=== PATIENT | male | born 1990 | race Caucasian/White ===

== ENCOUNTER 2024-06-20 16:23 | Emergency (ER) | payer SELFPAY ==
--- NOTE | 2024-06-20 16:30 | ED.GENMED ---
ED Provider Triage
<Liz Pulido, POACHER WRINGER OPERATOR - Last Filed: 06/20/24 16:34>
-
Patient seen by provider in Triage?: Seen in Triage
Attestation: A medical screening examination has been initiated by a qualified medical provider. Based on the assessment performed at this time, it has been determined that an emergent medical condition may exist and the patient has been informed
that further medical evaluation and possible additional diagnostic testing may be needed.
HPI: 33 yo male with migraines, HTN, was on BP but lost health insurance so has taken non since 2 months ago. For the last 3 to 4 days he has been having some issues with chest pain and trouble breathing 'Like I can't catch my breath,' he has been
chalking it up to anxiety, patient has a history of anxiety/panic attacks but this does not feel like that). Now chest feels tight. Denies n/v/d/c.
GENERAL: Alert , in no apparent distress
EYE: No visual abnormalities.
NECK: Trachea midline
ENT: No visible abnormalities.
LUNGS: No acute respiratory distress
NEUROLOGICAL: Alert and oriented
SKIN: Skin intact. No visible changes.
MUSCULOSKELETAL: Moving extremities normally
PSYCH: Normal and appropriate interaction.
This is a medical evaluation conducted in person to initiate diagnostic evaluation and provide initial therapeutics. Please see further documentation by the treating clinician.
History of Present Illness
<Liz Pulido, POACHER WRINGER OPERATOR - Last Filed: 06/20/24 16:34>
General
Chief Complaint: Chest Pain
Time Seen by Provider: 06/20/24 17:22
<Narendra Tate DO - Last Filed: 06/20/24 23:43>
General
Source: patient
Exam Limitations: none
Nursing documentation reviewed up to this point in time: agreed with
History of Present Illness
History of Present Illness:
43-year-old male with chest pain and difficulty catching breath for the past few days. He has not taken his medications for 2 months, to include sertraline. This is because he lost his insurance. He feels very anxious.
Past History
<Liz Pulido POACHER WRINGER OPERATOR - Last Filed: 06/20/24 16:34>
Past History
ED Past Medical History: None and Other (Anxiety, binge drinker, migraine headaches, opiate addiction)
ED Past Surgical History: None
Social History
Tobacco: Smoker
Alcohol: Binge drinker
Drug: None
Personal: Single
Employment: Student
Family History
Family History: Other (Diabetes, pancreatic cancer)
Review of Systems
<Narendra Tate, DO - Last Filed: 06/20/24 23:43>
Review of Systems
Allergies reviewed?: Yes
All Other Systems: Not applicable
Constitutional: Reports no symptoms
EENT: Reports no symptoms
Respiratory: Reports trouble breathing
Cardiac: Reports chest pain
ABD/GI: Reports no symptoms
: Reports no symptoms
Musculoskeletal: Reports no symptoms
Skin: Reports no symptoms
Neurological: Reports no symptoms
Endocrine: Reports no symptoms
Hematologic/Lymphatic: Reports no symptoms
Psychiatric: Reports no symptoms
Phy Exam
<Narendra Tate, DO - Last Filed: 06/20/24 23:43>
Physical Exam
Physical Exam:
Physical Exam
General: no apparent distress, not acutely ill
Neck: supple. no meningeal signs. normal posterior pharynx
Heart: s1/s2 regular rate and rhythm, no murmur. equal radial
pulses.
HEENT: Pupils equal round reactive to light, EOMI
Lungs: no acute respiratory distress. clear bilaterally
Abdomen: normal bowel sounds. not tender. no CVAT
Neuro: alert and oriented. no focal neurological deficits cranial nerves II through XII intact
Skin: no rash
Psychiatric: well kept. interactive and cooperative
Extremities: no edema. no calf tenderness. negative homans. good distal pulses
Scores
<Narendra Tate, DO - Last Filed: 06/20/24 23:43>
Heart Score for Chest Pain Patients
STEMI patient?: No
History: Slightly or Non-Suspicious
ECG: Normal
Age: </= 45 years
Risk Factors: No Risk Factors
Troponin: </= Normal Limit
Heart Score for Chest Pain Patients: 0
Heart Score Risk: 2.5% MACE over next 6 weeks
Course
<Liz Pulido POACHER WRINGER OPERATOR - Last Filed: 06/20/24 16:34>
Orders/Labs/Results
Orders:
Orders
06/20/24 16:24
EKG [Electrocardiogram (*1)] Urgent
Reason for Study: Chest Pain
EKG- Treatment ONCE
06/20/24 16:33
CR Chest - 2 Views Urgent
Comment:
Reason For Exam: SOB, CP
06/20/24 16:40
Complete Blood Count/With Diff Urgent
Comprehensive Metabolic Panel Urgent
Troponin I Urgent
06/20/24 19:23
D-Dimer Urgent
06/20/24 20:44
Pantoprazole [Protonix IV] 40 mg IV NOW STA
Abnormal Lab Results
06/20/24
16:40
RBC 4.69 L 10^6/uL
(4.70-6.10)
MCH 33.5 H pg
(27.0-31.0)
Sodium 134 L mmol/L
(135-145)
Chloride 97 L mmol/L
(98-107)
Creatinine 0.6 L mg/dL
(0.7-1.3)
06/20/24 16:40
06/20/24 16:40
Vital Signs
Initial and Last Documented VS:
Initial Vital Signs
Temp Pulse Resp BP Pulse Ox
99 F 91 19 145/105 97
06/20/24 16:32 06/20/24 16:32 06/20/24 16:32 06/20/24 16:32 06/20/24 16:32
Last Documented Vital Signs
Temp Pulse Resp BP Pulse Ox
99 F 74 18 144/79 99
06/20/24 16:32 06/20/24 20:59 06/20/24 20:59 06/20/24 20:59 06/20/24 20:59
<Narendra Tate, DO - Last Filed: 06/20/24 23:43>
Orders/Labs/Results
Orders:
Orders
06/20/24 16:24
EKG [Electrocardiogram (*1)] Urgent
Reason for Study: Chest Pain
EKG- Treatment ONCE
06/20/24 16:33
CR Chest - 2 Views Urgent
Comment:
Reason For Exam: SOB, CP
06/20/24 16:40
Complete Blood Count/With Diff Urgent
Comprehensive Metabolic Panel Urgent
Troponin I Urgent
06/20/24 19:23
D-Dimer Urgent
06/20/24 20:44
Pantoprazole [Protonix IV] 40 mg IV NOW STA
Abnormal Lab Results
06/20/24
16:40
RBC 4.69 L 10^6/uL
(4.70-6.10)
MCH 33.5 H pg
(27.0-31.0)
Sodium 134 L mmol/L
(135-145)
Chloride 97 L mmol/L
(98-107)
Creatinine 0.6 L mg/dL
(0.7-1.3)
06/20/24 16:40
06/20/24 16:40
Vital Signs
Initial and Last Documented VS:
Initial Vital Signs
Temp Pulse Resp BP Pulse Ox
99 F 91 19 145/105 97
06/20/24 16:32 06/20/24 16:32 06/20/24 16:32 06/20/24 16:32 06/20/24 16:32
Last Documented Vital Signs
Temp Pulse Resp BP Pulse Ox
99 F 74 18 144/79 99
06/20/24 16:32 06/20/24 20:59 06/20/24 20:59 06/20/24 20:59 06/20/24 20:59
<Narendra Tate, DO - Last Filed: 06/20/24 23:43>
MDM/Problems Addressed
Differential Diagnosis Includes:
PE, ACS
MDM/Problems Addressed:
33-year-old male with shortness of breath, chest pain. Ongoing for several months. Do not suspect ACS or PE. Stable for discharge.
<Narendra Tate, DO - Last Filed: 06/20/24 23:43>
*Radiology
Radiology exam reviewed: preliminary read by ED provider (cxr nad)
*Pulse Oximetry
Patient hypoxic: no
*EKG
Interpreted by ED Provider?: Yes
EKG Intrepretation Date: 06/20/24
EKG Intrepretation Time: 16:28
Interpretation: normal
Comparison EKG: changes noted
Heart Rate: 74
Rate: normal
Rhythm: sinus
[place]: normal axis
Interval: normal interval
QRS Pattern: normal QRS
Ischemia: no ischemia
*Critical Care Note
Total Time (30-74mins, 75-104mins- exclusive of procedures): Not Applicable
Data Reviewed
Further Testing Considered But Not Given:
CT chest and chest x-ray not indicated
<Narendra Tate, DO - Last Filed: 06/20/24 23:43>
Patient Management
Social determinants of health affecting care: Living situation and Substance abuse (Tobacco)
Escalation/DeEscalation of care consider admission/obs:
Admit not indicated
ED Attending Note
<Liz Pulido POACHER WRINGER OPERATOR - Last Filed: 06/20/24 16:34>
-
Portions of this chart may have been created with voice recognition software.� Occasional wrong word or��sound alike� substitutions may have occurred due to the inherent limitations of voice recognition software.
Discharge Plan
Departure
Patient Disposition: Home (Routine Discharge)
Date of Disposition: 06/20/24
Time of Disposition: 20:44
Patient with high blood pressure during this ER visit?: Yes
Condition: Good
Discharge Problem:
Chest pain, Shortness of breath
Instructions: Chest Pain PCP Follow Up, BLOOD PRESSURE
Prescriptions:
No Action
sertraline 100 MG tablet
150 mg PO DAILY
ranitidine HCl [Zantac Maximum Strength] 150 MG tablet
150 mg PO DAILY Qty: 5 0RF
buprenorphine-naloxone 1 TAB tablet, sublingual
1 tab sublingual DAILY
Referrals:
[facility] - Call in 1-3 days for appt
NONE,* [Family Provider] -
Activity Restrictions/Additional Instructions:
return for any concerns.
Interventions
Interventions:
*Risk Screen - Suicide Last Done: 06/20/24 16:32
*General Assessment Last Done: 06/20/24 16:32
*Neglect/Abuse Screening Last Done: 06/20/24 16:32
ED- Fall Risk Assessment Last Done: 06/20/24 19:24
*ED COVID-19 Vaccine History Last Done: 06/20/24 17:36
*Nursing Disposition Last Done: 06/20/24 20:59
ED- Cardiac Assessment Last Done: 06/20/24 17:36
Discharge Date and Time
Discharge Date/Time: 06/20/24 21:00
Print Language: MONEGASQUE
[2024-06-20 16:32] VITALS: BP 145/105
[2024-06-20 16:53] LABS: % Basophils 0.3 % (0-2); % Eosinophils 0.7 % (0-6); % Immature Granulocytes 0.3 % (0-0.5); % Monocytes 8.6 % (1.7-9.3); % Neutrophils 60.1 % (42.2-75.2); Absolute Eosinophils 0.1 10^3/uL (0-0.7); Absolute Monocytes 0.6 10^3/uL (0.1-0.6); Absolute Neutrophils 4.1 10^3/uL (1.4-6.5); Hematocrit 43.8 % (39.0-52.0); Hemoglobin 15.7 g/dL (13.0-18.0); Mean Corp Hgb Conc. 35.8 g/dL (33.0-37.0); Mean Corpuscular Hgb 33.5 pg (27.0-31.0); Mean Corpuscular Volume 93.4 fL (80.0-94.0); Mean Platelet Volume 9.8 fL (7.4-10.4); Nucleated Red Blood Cells % 0 % (-); Platelet Count 190 10^3/uL (130-400); Red Blood Cell Count 4.69 10^6/uL (4.70-6.10); White Blood Cell Count 6.7 10^3/uL (4.8-10.8)
[2024-06-20 17:09] LABS: ALT (SGPT) 36 U/L (0-50); AST (SGOT) 53 U/L (17-59); Albumin 4.8 g/dl (3.5-5.0); Alkaline Phosphatase 85 U/L (38-126); Blood Urea Nitrogen 9 mg/dl (9-20); Carbon Dioxide 27 mmol/L (22-30); Chloride 97 mmol/L (98-107); Glucose 97 mg/dl (70-99); Sodium 134 mmol/L (135-145); Total Bilirubin 0.8 mg/dl (0.2-1.3); Total Protein 7.8 g/dl (6.3-8.2); eGFR > 60.00
[2024-06-20 17:14] LABS: Troponin I < 0.012 ng/ml
[2024-06-20 17:36] VITALS: BP 154/93
[2024-06-20 19:24] VITALS: BP 142/84
[2024-06-20 19:58] LABS: D-Dimer < 0.27 ug/mlFEU (0.00-0.50)
[2024-06-20] MEDS: PROTONIX IV 40 MG IV (20:48)
[2024-06-20 20:59] VITALS: BP 144/79
== END 2024-06-20 21:00 | disposition home or self-care (01) ==
LOC: EMR 16:23
PROVIDERS: Registered Nurse; EMERGENCY PHYSICIAN Emergency Medicine
DX: R07.1 Chest pain on breathing (principal); R06.02 Shortness of breath; I10 Essential (primary) hypertension; F41.9 Anxiety disorder, unspecified; F17.200 Nicotine dependence, unspecified, uncomplicated; Z59.71 Insufficient health insurance coverage; Z83.3 Family history of diabetes mellitus
CPT/HCPCS: 99283; 96374; 71046; 80053; 84484; 85025; 85379; 93005

== ENCOUNTER 2024-07-03 19:00 | Emergency (ER) | payer SELFPAY ==
[2024-07-03 19:07] VITALS: BP 114/74
[2024-07-03 19:31] LABS: % Basophils 0.7 % (0-2); % Eosinophils 0.7 % (0-6); % Immature Granulocytes 0.3 % (0-0.5); % Lymphocytes 17.6 % (20.5-51.1); % Monocytes 4.5 % (1.7-9.3); % Neutrophils 76.2 % (42.2-75.2); Absolute Monocytes 0.3 10^3/uL (0.1-0.6); Absolute Neutrophils 4.4 10^3/uL (1.4-6.5); Hematocrit 42.6 % (39.0-52.0); Hemoglobin 15.4 g/dL (13.0-18.0); Mean Corp Hgb Conc. 36.2 g/dL (33.0-37.0); Mean Corpuscular Hgb 33.6 pg (27.0-31.0); Mean Platelet Volume 9.2 fL (7.4-10.4); Nucleated Red Blood Cells % 0 % (-); Platelet Count 242 10^3/uL (130-400); Red Blood Cell Count 4.58 10^6/uL (4.70-6.10); Red Cell Dist. Width 11.9 % (11.5-14.5); White Blood Cell Count 5.8 10^3/uL (4.8-10.8)
--- NOTE | 2024-07-03 19:51 | ED.GENMED ---
History of Present Illness
<Marta Morton PA-C - Last Filed: 07/04/24 00:05>
General
Chief Complaint: Abdominal Symptoms
Source: patient
Exam Limitations: none
Time Seen by Provider: 07/03/24 19:38
History of Present Illness
History of Present Illness:
33yoM with a prior history of substance use on Suboxone presenting for evaluation of vomiting. Symptoms began around 4am this morning. He reports nausea, dry heaving, and vomiting about 12x throughout the day. He feels very dehydrated. His abdomen
feels sore but he denies any overt pain. He denies any fevers or diarrhea. He is unsure what is causing his symptoms. He denies any suspicious food intake, travel, or sick contacts. Patient does drink alcohol daily. 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 Last drink was yesterday evening. No previous abdominal surgeries.
Past History
<Marta Morton PA-C - Last Filed: 07/04/24 00:05>
Past History
ED Past Medical History: None and Other (Anxiety, binge drinker, migraine headaches, opiate addiction)
ED Past Surgical History: None
Social History
Tobacco: Smoker
Alcohol: Binge drinker
Drug: None
Personal: Single
Employment: Student
Family History
Family History: Other (Diabetes, pancreatic cancer)
Phy Exam
<Marta Morton PA-C - Last Filed: 07/04/24 00:05>
General Physical Exam
General Presentation: well appearing and no apparent distress
General age: appears stated age
General Skin: warm and dry
General Habitus: normal
General Mental: alert
ENT Exam
ENT Exam: normocephalic
Cardiovascular Exam
Cardiovascular Exam: regular rate/rhythm and no murmur
Pulmonary Exam
Pulmonary Exam: lungs clear, no respiratory distress, no rales, no crackles and no rhonchi
Gastrointestinal Exam
Gastrointestinal Exam: non tender, soft and non distended
Neurological Exam
Neurological Exam: alert
[place] Coma Scale
Eye Opening: Spontaneous
Verbal Response: Oriented
Motor Response: Obeys Commands
GCS Total Score: 15
Skin Exam
Skin Exam: normal color and warm/dry
Psychiatric Exam
Psychiatric Exam: normal mood/affect
Sepsis
<Marta Morton PA-C - Last Filed: 07/04/24 00:05>
Sepsis Screening
Sepsis Assessment: Sepsis Ruled Out
Sepsis Screen
Sepsis Screen: Sepsis Ruled Out
Date: 07/04/24
Time: 00:05
Course
<Marta Morton PA-C - Last Filed: 07/04/24 00:05>
Orders/Labs/Results
Orders:
Orders
07/03/24 19:23
BMP [Basic Metabolic Panel] Urgent
Complete Blood Count/With Diff Urgent
Lipase Urgent
Comment: ADDON
[id number] Urgent
Comment: ADDON
07/03/24 19:51
0.9% Sodium Chloride 1000 ml [Nss] 1,000 ml IV BOLUS
Ondansetron Injectable [Zofran] 4 mg IV NOW STA
07/03/24 19:56
Add On- LAB Urgent
Tests Added?: LFTs, lipase
07/03/24 20:25
COVID-19 Antigen Urgent
Source: Nasal Swab
Influenza A+B Rapid Molecular Urgent
MARIANO Source: Nasal Swab
Specimen Description:
07/03/24 20:31
Electrocardiogram (*1) Urgent
Reason for Study: Chest Pain
07/03/24 22:16
Chlordiazepoxide HCl [Librium] 50 mg PO ONCE ONE
Abnormal Lab Results
07/03/24
19:23
RBC 4.58 L 10^6/uL
(4.70-6.10)
MCH 33.6 H pg
(27.0-31.0)
Absolute Lymphs (auto) 1.0 L 10^3/uL
(1.2-3.4)
Neutrophils % 76.2 H %
(42.2-75.2)
Lymphocytes % 17.6 L %
(20.5-51.1)
Carbon Dioxide 20 L mmol/L
(22-30)
Creatinine 0.6 L mg/dL
(0.7-1.3)
Direct Bilirubin 0.5 H mg/dl
(0.0-0.4)
AST 63 H U/L
(17-59)
Albumin 5.1 H g/dl
(3.5-5.0)
07/03/24 19:23
07/03/24 19:23
Vital Signs
Initial and Last Documented VS:
Initial Vital Signs
Temp Pulse Resp BP Pulse Ox
98.2 F 86 20 114/74 96
07/03/24 19:07 07/03/24 19:07 07/03/24 19:07 07/03/24 19:07 07/03/24 19:07
Last Documented Vital Signs
Temp Pulse Resp BP Pulse Ox
98.2 F 87 18 130/87 100
07/03/24 19:07 07/03/24 23:13 07/03/24 23:13 07/03/24 23:13 07/03/24 23:13
<Vicky Amaya MD - Last Filed: 07/03/24 20:33>
Orders/Labs/Results
Orders:
Orders
07/03/24 19:23
BMP [Basic Metabolic Panel] Urgent
Complete Blood Count/With Diff Urgent
Lipase Urgent
Comment: ADDON
[id number]-[id number]-Uiptpdo Urgent
Comment: ADDON
07/03/24 19:51
0.9% Sodium Chloride 1000 ml [Nss] 1,000 ml IV BOLUS
Ondansetron Injectable [Zofran] 4 mg IV NOW STA
07/03/24 19:56
Add On- LAB Urgent
Tests Added?: LFTs, lipase
07/03/24 20:25
COVID-19 Antigen Urgent
Source: Nasal Swab
Influenza A+B Rapid Molecular Urgent
MARIANO Source: Nasal Swab
Specimen Description:
07/03/24 20:31
Electrocardiogram (*1) Urgent
Reason for Study: Chest Pain
07/03/24 22:16
Chlordiazepoxide HCl [Librium] 50 mg PO ONCE ONE
Abnormal Lab Results
07/03/24
19:23
RBC 4.58 L 10^6/uL
(4.70-6.10)
MCH 33.6 H pg
(27.0-31.0)
Absolute Lymphs (auto) 1.0 L 10^3/uL
(1.2-3.4)
Neutrophils % 76.2 H %
(42.2-75.2)
Lymphocytes % 17.6 L %
(20.5-51.1)
Carbon Dioxide 20 L mmol/L
(22-30)
Creatinine 0.6 L mg/dL
(0.7-1.3)
Direct Bilirubin 0.5 H mg/dl
(0.0-0.4)
AST 63 H U/L
(17-59)
Albumin 5.1 H g/dl
(3.5-5.0)
07/03/24 19:23
07/03/24 19:23
Vital Signs
Initial and Last Documented VS:
Initial Vital Signs
Temp Pulse Resp BP Pulse Ox
98.2 F 86 20 114/74 96
07/03/24 19:07 07/03/24 19:07 07/03/24 19:07 07/03/24 19:07 07/03/24 19:07
Last Documented Vital Signs
Temp Pulse Resp BP Pulse Ox
98.2 F 87 18 130/87 100
07/03/24 19:07 07/03/24 23:13 07/03/24 23:13 07/03/24 23:13 07/03/24 23:13
<Marta Morton PA-C - Last Filed: 07/04/24 00:05>
MDM/Problems Addressed
Differential Diagnosis Includes:
33yoM here with n/v since 4am this morning. No fevers or diarrhea. Patient is afebrile and hemodynamically stable. He is well-appearing in no acute distress. Abdominal exam is benign. Differential diagnosis includes but is not limited to:
Gastroenteritis, viral syndrome, gastritis, dehydration, no clinical signs of alcohol withdrawal
Initial ED plan: Check abdominal labs and COVID/flu swab. IV Zofran and fluid bolus for symptoms. Will have [facility] evaluate patient as he is interested in alcohol cessation.
<Marta Morton PA-C - Last Filed: 07/04/24 00:05>
*Critical Care Note
Total Time (30-74mins, 75-104mins- exclusive of procedures): Not Applicable
<Marta Morton PA-C - Last Filed: 07/04/24 00:05>
Update Note
Update Note:
Labs overall unremarkable including normal white count, lactate, and renal function. Patient feeling improved on reassessment and was able to tolerate p.o. intake. Patient spoke with [facility]STE[facility] and was given outpatient resources. Patient tells me
that he would like to stop drinking cold turkey. He has been heavily drinking for the past 2 months, about 10 shots of liquor per day. No prior history of alcohol withdrawal. Will prescribe Librium taper for patient. He was advised to avoid
alcohol while taking Librium due to risk of respiratory depression. Prescription also provided for Zofran. He was advised to follow-up with his PCP as well as the outpatient resources provided. Strict ED return precautions discussed. Patient in
agreement with plan and was discharged in stable condition.
ED Attending Note
<Marta Morton PA-C - Last Filed: 07/04/24 00:05>
-
Portions of this chart may have been created with voice recognition software.� Occasional wrong word or��sound alike� substitutions may have occurred due to the inherent limitations of voice recognition software.
<Vicky Amaya MD - Last Filed: 07/03/24 20:33>
ED Attending Note
Patient seen and examined by attending physician: Yes
I performed the substantive portion of visit, reviewed & personally made and approve the management plan that is documented in note by myself or ОЛЕГ.: Yes
ED Attending Note:
Patient's heart sounds regular. Lungs are clear. Patient has very mild epigastric tenderness on exam without rebound or guarding. He has no right upper quadrant tenderness. Patient states that his pain is minimal but the nausea is severe.
Patient symptoms may be related to heavy alcohol use last night or possibly gastritis. No sign of acute pancreatitis on lab work. Patient has no right upper quadrant tenderness to suggest gallbladder disease.
Discharge Plan
Departure
Patient Disposition: Home (Routine Discharge)
Date of Disposition: 07/03/24
Time of Disposition: 22:16
Patient with high blood pressure during this ER visit?: No
Discharge Problem:
Nausea and vomiting, Heavy alcohol consumption
Instructions: Nausea and Vomiting, Adult (DC), Alcohol withdrawal
Prescriptions:
New
ondansetron 4 mg tablet,disintegrating
4 mg PO Q6H PRN (Reason: nausea and vomiting) Qty: 20 0RF
chlordiazepoxide HCl 25 mg capsule
See Rx Instructions .ROUTE .COMPLEX Qty: 20 0RF
Rx Instructions:
Day 1: Take 50mg PO every 6 hours. Day 2: Take 50mg PO every 8 hours. Day 3: Take 50mg PO every 12 hours. Day 4: Take 50mg once at bedtime.
No Action
sertraline 100 MG tablet
150 mg PO DAILY
ranitidine HCl [Zantac Maximum Strength] 150 MG tablet
150 mg PO DAILY Qty: 5 0RF
buprenorphine-naloxone 1 TAB tablet, sublingual
1 tab sublingual DAILY
Referrals:
[facility]
NONE,* [Family Provider] -
Activity Restrictions/Additional Instructions:
Take Librium taper as prescribed. Do NOT drink alcohol while taking this.
Take Zofran as needed for nausea. Drink plenty of fluids and eat a bland diet (bananas, rice, applesauce, toast).
Please follow-up with your family doctor and the outpatient resources provided. Return to the ER with any new or worsening symptoms.
Interventions
Interventions:
*Risk Screen - Suicide Last Done: 07/03/24 19:07
*General Assessment Last Done: 07/03/24 20:57
*Neglect/Abuse Screening Last Done: 07/03/24 19:07
ED- Fall Risk Assessment Last Done: 07/03/24 20:57
*ED COVID-19 Vaccine History Last Done: 07/03/24 20:57
*Nursing Disposition Last Done: 07/03/24 23:25
OE-Qcyypp-Bbfeaixsli Assessment Last Done: 07/03/24 20:57
Discharge Date and Time
Discharge Date/Time: 07/03/24 23:28
Print Language: [place] LEONE[place]
[2024-07-03 20:04] LABS: Blood Urea Nitrogen 15 mg/dl (9-20); Calcium 9.7 mg/dl (8.4-10.2); Carbon Dioxide 20 mmol/L (22-30); Chloride 101 mmol/L (98-107); Glucose 95 mg/dl (70-99); Potassium 4.1 mmol/L (3.5-5.1); Sodium 135 mmol/L (135-145); eGFR > 60.00
[2024-07-03 20:17] LABS: ALT (SGPT) 45 U/L (0-50); AST (SGOT) 63 U/L (17-59); Albumin 5.1 g/dl (3.5-5.0); Alkaline Phosphatase 80 U/L (38-126); Direct Bilirubin 0.5 mg/dl (0.0-0.4); Lipase 59 U/L (23-300); Total Bilirubin 1.1 mg/dl (0.2-1.3); Total Protein 7.7 g/dl (6.3-8.2)
[2024-07-03] MEDS: ZOFRAN 4 MG IV (20:30)
[2024-07-03] MEDS: NSS 1000 IV (20:30)
[2024-07-03 20:59] LABS: COVID-19 Antigen Negative (Negative)
[2024-07-03 22:13] VITALS: BP 134/78
[2024-07-03] MEDS: LIBRIUM 50 MG PO (23:08)
[2024-07-03 23:13] VITALS: BP 130/87
== END 2024-07-03 23:28 | disposition home or self-care (01) ==
LOC: EMR 19:00
PROVIDERS: Emergency Medicine; Physician Assistant; EMERGENCY PHYSICIAN Emergency Medicine
DX: R11.2 Nausea with vomiting, unspecified (principal); F10.10 Alcohol abuse, uncomplicated; F17.200 Nicotine dependence, unspecified, uncomplicated
CPT/HCPCS: 96374; 96361; 99284; 80048; 80076; 83690; 85025; 87502; 87811

== ENCOUNTER 2024-08-01 21:49 | Emergency (ER) | payer BC, SELFPAY ==
[2024-08-01 21:51] VITALS: BP 144/96
--- NOTE | 2024-08-01 22:50 | ED.GENMED ---
History of Present Illness
General
Chief Complaint: Anxiety
Source: patient
Exam Limitations: none
Time Seen by Provider: 08/01/24 22:25
Nursing documentation reviewed up to this point in time: agreed with
History of Present Illness
History of Present Illness:
Pleasant 33-year-old male presents to the emergency department having a panic attack. He has a longstanding history of panic and has been having panic attacks for years. 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
panic attack. He states that he did take several breaks from work to try and calm himself down. He was unable to do so so he left early. Patient
Past History
Past History
ED Past Medical History: None and Other (Anxiety, binge drinker, migraine headaches, opiate addiction)
ED Past Surgical History: None
Social History
Tobacco: Smoker
Alcohol: Binge drinker
Drug: None
Personal: Single
Employment: Student
Family History
Family History: Other (Diabetes, pancreatic cancer)
Phy Exam
General Physical Exam
General Presentation: well appearing and moderate distress
General age: appears older than age
General Skin: warm and dry
General Habitus: normal
General Mental: anxious
General Hydration: appears well hydrated
ENT Exam
ENT Exam: EOMI, pharynx normal, neck supple and normocephalic
Eye Exam
Eye Exam: PERRL, cornea clear and conjunctiva normal
Cardiovascular Exam
Cardiovascular Exam: regular rate/rhythm, no edema, no murmur and normal peripheral pulses
Pulmonary Exam
Pulmonary Exam: lungs clear, no respiratory distress, no rales, no crackles, no rhonchi, no stridor, no wheezing and no cough
Gastrointestinal Exam
Gastrointestinal Exam: normal bowel sounds, non tender, soft, no organomegaly, no pulsatile mass and non distended
Neurological Exam
Neurological Exam: alert, oriented x3, no motor deficits and speech normal
Musculoskeletal Exam
Musculoskeletal Exam: full ROM and no edema
Skin Exam
Skin Exam: normal color, warm/dry, no rash and no petechia
Psychiatric Exam
Psychiatric Exam: anxious
Course
Orders/Labs/Results
Orders:
Orders
08/01/24 22:46
Crisis Consult Urgent
Reason for Consult: anxiety attack
08/01/24 22:50
Electrocardiogram (*1) Urgent
Reason for Study: QTc Monitoring
EKG- Treatment ONCE
08/01/24 23:57
Clonazepam [Klonopin] 1 mg PO NOW STA
Vital Signs
Initial and Last Documented VS:
Initial Vital Signs
Temp Pulse Resp BP Pulse Ox
97.2 F 98 24 144/96 98
08/01/24 21:51 08/01/24 21:51 08/01/24 21:51 08/01/24 21:51 08/01/24 21:51
Last Documented Vital Signs
Temp Pulse Resp BP Pulse Ox
97.2 F 90 24 121/81 98
08/01/24 21:51 08/02/24 00:24 08/01/24 21:51 08/02/24 00:02 08/02/24 00:24
*Critical Care Note
Total Time (30-74mins, 75-104mins- exclusive of procedures): Not Applicable
Update Note
Update Note:
Patient states that his domicile is [place] but his paperwork says [place] since he has recently moved here. The last time he was here, he was referred to the [facility]. He states that they would not see him.
Patient was seen by crisis. They will set him up with [facility]. They realized that he his paperwork says [place]. He does have proved that he lives in [place] which they state will be adequate.
I will set patient up with 2 weeks of his Klonopin Zoloft and Remeron. I feel that this is reasonable since he has not been able to see a physician to get his prescription. I feel that he is reliable and is doing everything he possibly can to
get well. He has exhausted all resources given to him. He is really concerned about losing his job due to these panic attacks.
Patient's Klonopin 1 mg p.o. twice daily, Zoloft 200 mg daily and Remeron 30 mg daily
Patient continues to deny suicidal or homicidal ideation, intent, or plan.
Patient last drink over 2 weeks ago. I do not feel that his anxiety is due to alcohol withdrawal at this time. Patient is in agreement.
ED Attending Note
-
Portions of this chart may have been created with voice recognition software.� Occasional wrong word or��sound alike� substitutions may have occurred due to the inherent limitations of voice recognition software.
Discharge Plan
Departure
Patient Disposition: Home (Routine Discharge)
Date of Disposition: 08/02/24
Time of Disposition: 00:03
Patient with high blood pressure during this ER visit?: Yes
Discharge Problem:
Anxiety
Instructions: Anxiety, Adult (DC), BLOOD PRESSURE
Prescriptions:
New
clonazepam [Klonopin] 1 mg tablet
1 mg PO BID Qty: 14 0RF
sertraline [Zoloft] 100 mg tablet
200 mg PO DAILY Qty: 14 0RF
mirtazapine [Remeron] 30 mg tablet
30 mg PO HS Qty: 14 0RF
No Action
sertraline 100 MG tablet
150 mg PO DAILY
ranitidine HCl [Zantac Maximum Strength] 150 MG tablet
150 mg PO DAILY Qty: 5 0RF
buprenorphine-naloxone 1 TAB tablet, sublingual
1 tab sublingual DAILY
ondansetron 4 mg tablet,disintegrating
4 mg PO Q6H PRN (Reason: nausea and vomiting) Qty: 20 0RF
chlordiazepoxide HCl 25 mg capsule
See Rx Instructions .ROUTE .COMPLEX Qty: 20 0RF
Rx Instructions:
Day 1: Take 50mg PO every 6 hours. Day 2: Take 50mg PO every 8 hours. Day 3: Take 50mg PO every 12 hours. Day 4: Take 50mg once at bedtime.
Referrals:
Yina Bolivar [Active] -
UNKNOWN - PT DOES,NOT KNOW [Family Provider] -
Activity Restrictions/Additional Instructions:
It was a pleasure meeting you and taking part in your care. We hope for your continued healing and wellness.
Please read discharge instructions in their entirety. However, they are for general education and may not describe your exact diagnosis at discharge. Information on your ER visit and medical conditions were discussed with you along with appropriate
follow up information...
If indicated, please take your medications as instructed and indicated on discharge paperwork.
Please schedule a follow up appointment as directed. Call to schedule an appointment
Please return to the emergency department with ANY change in, persisting, or worsening of symptoms. If any of your symptoms do not improve, or persist, or become more severe within 6-12 hours, please return to the emergency department for further
care.
Please return to the emergency department if you develop a headache, neck pain/stiffness, fever greater than 100.4F, chest pain, shortness of breath, persistent nausea, vomiting, slurred speech, difficulty walking, numbness/tingling, weakness, signs
of infection or any other symptoms that are worrisome to you.
If you have any questions or concerns please do not hesitate to call the Hospital at or E-mail me directly at [email or web address]
Interventions
Interventions:
*Risk Screen - Suicide Last Done: 08/01/24 21:51
*General Assessment Last Done: 08/01/24 23:56
*Neglect/Abuse Screening Last Done: 08/01/24 21:51
*ED- Fall Risk Assessment Last Done: 08/01/24 23:56
*ED COVID-19 Vaccine History Last Done: 08/01/24 23:56
*Nursing Disposition Last Done: 08/02/24 00:24
ED-Psychological Assessment Last Done: 08/02/24 00:01
Discharge Date and Time
Discharge Date/Time: 08/02/24 00:28
Print Language: KYRGYZ
[2024-08-01 23:56] VITALS: BMI 25.2
[2024-08-02 00:02] VITALS: BP 121/81
[2024-08-02] MEDS: KLONOPIN 1 MG PO (00:07)
== END 2024-08-02 00:28 | disposition home or self-care (01) ==
LOC: EMR 21:49
PROVIDERS: EMERGENCY PHYSICIAN Student in an Organized Health Care Education/Training Program
DX: F41.9 Anxiety disorder, unspecified (principal); F17.200 Nicotine dependence, unspecified, uncomplicated
CPT/HCPCS: 99283; 93005

== ENCOUNTER 2024-08-13 17:43 | Emergency (ER) | payer SELFPAY ==
[2024-08-13 17:54] VITALS: BP 124/88
--- NOTE | 2024-08-13 19:51 | ED.GENMED ---
History of Present Illness
General
Chief Complaint: Anxiety
Source: patient
Exam Limitations: none
Time Seen by Provider: 08/13/24 19:30
History of Present Illness
History of Present Illness:
Patient complaining of ongoing anxiety symptoms. Not suicidal or homicidal. Just very frustrated. Cannot get help for about 4 weeks. Has an appoint with [facility]. Unable to work due to the anxiety
Past History
Past History
ED Past Medical History: Other (Anxiety, binge drinker, migraine headaches, opiate addiction)
ED Past Surgical History: None
Social History
Tobacco: Smoker
Alcohol: Binge drinker
Drug: None
Personal: Single
Employment: Student
Family History
Family History: Other (Diabetes, pancreatic cancer)
Review of Systems
Review of Systems
All Other Systems: Not applicable
Constitutional: Denies fever or chills
Phy Exam
Physical Exam
Physical Exam:
GENERAL: Alert and oriented in no apparent distress
EYE: Orbits normal.
NECK: Supple
CARDIAC: Regular rate and rhythm without any obvious murmurs.
LUNGS: Clear breath sounds,normal
NEUROLOGICAL: Alert and oriented , grossly non-focal
SKIN: Warm and dry
PSYCH: Normal and appropriate interaction.
Course
Orders/Labs/Results
Orders:
Orders
08/13/24 19:39
Crisis Consult Urgent
Reason for Consult: anxiety
Vital Signs
Initial and Last Documented VS:
Initial Vital Signs
Temp Pulse Resp BP Pulse Ox
98.3 F 103 18 124/88 96
08/13/24 17:54 08/13/24 17:54 08/13/24 17:54 08/13/24 17:54 08/13/24 17:54
Last Documented Vital Signs
Temp Pulse Resp BP Pulse Ox
98.3 F 103 18 124/88 96
08/13/24 17:54 08/13/24 17:54 08/13/24 17:54 08/13/24 17:54 08/13/24 17:54
MDM/Problems Addressed
Differential Diagnosis Includes:
Patient describing anxiety disorder. Previously had been on clonazepam Remeron and Zoloft with good results. Cannot get an appointment for [facility] for over a month. Asked for crisis involvement.
*Critical Care Note
Total Time (30-74mins, 75-104mins- exclusive of procedures): Not Applicable
Data Reviewed
Review of Other/Old Records Reveals: Labs and Records
Update Note
Update Note:
Patient was seen by crisis. They will work on moving up his appointment as much as they can. Clinically he has been very reliable and tried to follow the system. I will give him 1 more week of his medications pending follow-up
ED Attending Note
-
Portions of this chart may have been created with voice recognition software.� Occasional wrong word or��sound alike� substitutions may have occurred due to the inherent limitations of voice recognition software.
Discharge Plan
Departure
Patient Disposition: Home (Routine Discharge)
Date of Disposition: 08/13/24
Time of Disposition: 21:46
Patient with high blood pressure during this ER visit?: Yes
Discharge Problem:
Anxiety disorder
Instructions: Anxiety, Adult (DC), BLOOD PRESSURE
Prescriptions:
New
clonazepam [Klonopin] 1 mg tablet
1 mg PO BID Qty: 14 0RF
sertraline [Zoloft] 100 mg tablet
200 mg PO DAILY Qty: 14 0RF
mirtazapine [Remeron] 30 mg tablet
30 mg PO HS 14 Days Qty: 14 0RF
No Action
sertraline 100 MG tablet
150 mg PO DAILY
ranitidine HCl [Zantac Maximum Strength] 150 MG tablet
150 mg PO DAILY Qty: 5 0RF
buprenorphine-naloxone 1 TAB tablet, sublingual
1 tab sublingual DAILY
ondansetron 4 mg tablet,disintegrating
4 mg PO Q6H PRN (Reason: nausea and vomiting) Qty: 20 0RF
chlordiazepoxide HCl 25 mg capsule
See Rx Instructions .ROUTE .COMPLEX Qty: 20 0RF
Rx Instructions:
Day 1: Take 50mg PO every 6 hours. Day 2: Take 50mg PO every 8 hours. Day 3: Take 50mg PO every 12 hours. Day 4: Take 50mg once at bedtime.
clonazepam [Klonopin] 1 mg tablet
1 mg PO BID Qty: 14 0RF
sertraline [Zoloft] 100 mg tablet
200 mg PO DAILY Qty: 14 0RF
mirtazapine [Remeron] 30 mg tablet
30 mg PO HS Qty: 14 0RF
Referrals:
NONE,* [Family Provider] -
Activity Restrictions/Additional Instructions:
Your prescriptions were sent to your pharmacy
Follow-up closely with crisis/[place]
Return with any concerns
Interventions
Interventions:
*Risk Screen - Suicide Last Done: 08/13/24 17:54
*General Assessment Last Done: 08/13/24 17:54
*Neglect/Abuse Screening Last Done: 08/13/24 17:54
*ED COVID-19 Vaccine History Last Done: 08/13/24 17:54
Discharge Date and Time
Print Language: MALAGASY
[2024-08-13 21:54] VITALS: BP 148/82
== END 2024-08-13 22:06 | disposition home or self-care (01) ==
LOC: EMR 17:43
PROVIDERS: EMERGENCY PHYSICIAN Emergency Medicine
DX: F41.9 Anxiety disorder, unspecified (principal); F17.200 Nicotine dependence, unspecified, uncomplicated
CPT/HCPCS: 99283

== ENCOUNTER 2024-09-03 17:58 | Emergency (ER) | payer SELFPAY ==
[2024-09-03 18:00] VITALS: BP 148/93
--- NOTE | 2024-09-03 18:21 | ED.GENMED ---
History of Present Illness
General
Chief Complaint: Anxiety
Source: patient
Exam Limitations: none
Time Seen by Provider: 09/03/24 18:12
History of Present Illness
History of Present Illness:
34-year-old male presents with overwhelming anxiety and panic attacks. He has a history of this. He was here in July for the same. He has been performing the appropriate steps following with crisis and has an appointment set up for psychiatrist
for September 11, 1 week from now. He thought after running out of his medicine last week that he could push through however the anxiety is overwhelming. He denies thoughts of harming self or others. No other complaints at this time
Past History
Past History
ED Past Medical History: Other (Anxiety, binge drinker, migraine headaches, opiate addiction)
ED Past Surgical History: None
Social History
Tobacco: Smoker
Alcohol: Binge drinker
Drug: None
Personal: Single
Employment: Student
Family History
Family History: Other (Diabetes, pancreatic cancer)
Phy Exam
Physical Exam
Physical Exam:
General: Anxious tremulous male no acute respiratory distress denying thoughts of harming self or others calm and cooperative
Heart: Regular rate and rhythm
Lungs: Clear no wheeze
Ext: no cyanosis
Course
Vital Signs
Initial and Last Documented VS:
Initial Vital Signs
Temp Pulse Resp BP Pulse Ox
97.4 F 114 16 148/93 96
09/03/24 18:00 09/03/24 18:00 09/03/24 18:00 09/03/24 18:00 09/03/24 18:00
Last Documented Vital Signs
Temp Pulse Resp BP Pulse Ox
97.4 F 114 16 148/93 96
09/03/24 18:00 09/03/24 18:00 09/03/24 18:00 09/03/24 18:00 09/03/24 18:00
MDM/Problems Addressed
Differential Diagnosis Includes:
Patient with anxiety and history of such out of medication following through with appropriate steps. Has an appointment for 1 week from now. Will refill his medicine for another week. Patient satisfied with this. Offered crisis however he has
been in contact with him already
*Critical Care Note
Total Time (30-74mins, 75-104mins- exclusive of procedures): Not Applicable
ED Attending Note
-
Portions of this chart may have been created with voice recognition software.� Occasional wrong word or��sound alike� substitutions may have occurred due to the inherent limitations of voice recognition software.
Discharge Plan
Departure
Patient Disposition: Home (Routine Discharge)
Date of Disposition: 09/03/24
Time of Disposition: 18:25
Patient with high blood pressure during this ER visit?: No
Discharge Problem:
Anxiety
Instructions: Anxiety, Adult (DC)
Prescriptions:
New
clonazepam [Klonopin] 1 mg tablet
1 mg PO BID Qty: 14 0RF
mirtazapine [Remeron] 30 mg tablet
15 mg PO HS 7 Days Qty: 4 0RF
sertraline 200 mg capsule
200 mg PO DAILY Qty: 7 0RF
No Action
sertraline 100 MG tablet
150 mg PO DAILY
ranitidine HCl [Zantac Maximum Strength] 150 MG tablet
150 mg PO DAILY Qty: 5 0RF
buprenorphine-naloxone 1 TAB tablet, sublingual
1 tab sublingual DAILY
ondansetron 4 mg tablet,disintegrating
4 mg PO Q6H PRN (Reason: nausea and vomiting) Qty: 20 0RF
chlordiazepoxide HCl 25 mg capsule
See Rx Instructions .ROUTE .COMPLEX Qty: 20 0RF
Rx Instructions:
Day 1: Take 50mg PO every 6 hours. Day 2: Take 50mg PO every 8 hours. Day 3: Take 50mg PO every 12 hours. Day 4: Take 50mg once at bedtime.
clonazepam [Klonopin] 1 mg tablet
1 mg PO BID Qty: 14 0RF
sertraline [Zoloft] 100 mg tablet
200 mg PO DAILY Qty: 14 0RF
mirtazapine [Remeron] 30 mg tablet
30 mg PO HS Qty: 14 0RF
clonazepam [Klonopin] 1 mg tablet
1 mg PO BID Qty: 14 0RF
sertraline [Zoloft] 100 mg tablet
200 mg PO DAILY Qty: 14 0RF
mirtazapine [Remeron] 30 mg tablet
30 mg PO HS 14 Days Qty: 14 0RF
Activity Restrictions/Additional Instructions:
Please keep appointment as planned with psychiatry. Take medications as directed. Return if needed otherwise
Interventions
Interventions:
*Risk Screen - Suicide Last Done: 09/03/24 18:00
*General Assessment Last Done: 09/03/24 18:00
*Neglect/Abuse Screening Last Done: 09/03/24 18:00
*ED COVID-19 Vaccine History Last Done: 09/03/24 18:05
Discharge Date and Time
Print Language: SERBIAN
[2024-09-03 18:41] VITALS: BP 138/96
[2024-09-03 18:42] VITALS: BMI 27.8
== END 2024-09-03 18:45 | disposition home or self-care (01) ==
LOC: EMR 17:58
PROVIDERS: EMERGENCY PHYSICIAN Student in an Organized Health Care Education/Training Program
DX: F41.9 Anxiety disorder, unspecified (principal); F17.200 Nicotine dependence, unspecified, uncomplicated
CPT/HCPCS: 99283

== ENCOUNTER 2024-11-04 19:47 | Emergency (ER) | payer SELFPAY ==
[2024-11-04 19:48] VITALS: BP 132/85
[2024-11-04 21:00] VITALS: BP 114/70
[2024-11-04 21:18] VITALS: BMI 27.5
[2024-11-04] MEDS: TORADOL 30 MG IV (22:57)
[2024-11-04] MEDS: BENADRYL 25 MG IV (22:58)
--- NOTE | 2024-11-04 22:59 | ED.GENMED ---
History of Present Illness
General
Chief Complaint: Headache
Source: patient
Exam Limitations: none
Time Seen by Provider: 11/04/24 20:27
Nursing documentation reviewed up to this point in time: agreed with
History of Present Illness
History of Present Illness:
Patient to ED with concern of severe headache, atypical migraine. Takes excedrin. usually with complete relief but excedrin not helping today. Denies fever/chills. +nausea, no vomiting. Denies any changes in vision. Brought to ED by family for
eval.
Past History
Past History
ED Past Medical History: Other (Anxiety, binge drinker, migraine headaches, opiate addiction)
ED Past Surgical History: None
Social History
Tobacco: Smoker
Alcohol: Binge drinker
Drug: None
Personal: Single
Employment: Student
Family History
Family History: Other (Diabetes, pancreatic cancer)
Review of Systems
Review of Systems
Allergies reviewed?: Yes
All Other Systems: ROS reviewed and negative except as documented in HPI and ROS
Constitutional: Reports no symptoms
EENT: Reports no symptoms
Respiratory: Reports no symptoms
Cardiac: Reports no symptoms
ABD/GI: Reports nausea
: Reports no symptoms
Musculoskeletal: Reports no symptoms
Skin: Reports no symptoms
Neurological: Reports headache (severe, atypical)
Psychiatric: Reports no symptoms
Phy Exam
General Physical Exam
General Presentation: mild distress
General age: appears stated age
General Skin: warm and dry
General Habitus: normal
General Mental: alert
General Hydration: appears well hydrated
ENT Exam
ENT Exam: EOMI, TM's normal, neck supple and swallowing well
Eye Exam
Eye Exam: PERRL, EOMI, conjunctiva normal, disc sharp and globe normal
Neurological Exam
Neurological Exam: alert, oriented x3, CN II-XII intact, no motor deficits, no sensory deficits, speech normal and normal gait
Musculoskeletal Exam
Musculoskeletal Exam: full ROM and neuro vasc intact
Skin Exam
Skin Exam: normal color, warm/dry and no rash
Course
Orders/Labs/Results
Orders:
Orders
11/04/24 20:57
CT Head W/o Iv Contrast Urgent
Comment:
Reason For Exam: atypical migraine
11/04/24 22:45
0.9% Sodium Chloride 1000 ml [Nss] 1,000 ml IV BOLUS
Diphenhydramine [Benadryl] 25 mg IV NOW STA
Ketorolac [Toradol] 30 mg IV NOW STA
Prochlorperazine [Compazine] 10 mg IV NOW STA
Vital Signs
Initial and Last Documented VS:
Initial Vital Signs
Temp Pulse Resp BP Pulse Ox
97.6 F 89 16 132/85 98
11/04/24 19:48 11/04/24 19:48 11/04/24 19:48 11/04/24 19:48 11/04/24 19:48
Last Documented Vital Signs
Temp Pulse Resp BP Pulse Ox
97.6 F 97 14 114/70 97
11/04/24 19:48 11/04/24 21:17 11/04/24 21:17 11/04/24 21:00 11/04/24 20:45
*Radiology
Radiology exam reviewed: radiology read reviewed
*Pulse Oximetry
Patient hypoxic: no
*Critical Care Note
Total Time (30-74mins, 75-104mins- exclusive of procedures): Not Applicable
Update Note
Update Note:
Patient to ED wtih complaint of severe atypical migraine. Taking excedrin without relief. CT tonight neg for acute findings. VSS, he remains afebrile. No meningeal s/s. Given migraine cocktail of benadryl, toradol and compazine with relief of
his pain. He refused IV fluids. He is discharged home and will followup with PCP
ED Attending Note
-
Portions of this chart may have been created with voice recognition software.� Occasional wrong word or��sound alike� substitutions may have occurred due to the inherent limitations of voice recognition software.
Discharge Plan
Departure
Patient Disposition: Home (Routine Discharge)
Date of Disposition: 11/04/24
Time of Disposition: 23:14
Patient with high blood pressure during this ER visit?: No
Condition: Good
Covid-19: Not Applicable
Discharge Problem:
Migraine
Instructions: Migraines (DC)
Prescriptions:
No Action
sertraline 100 MG tablet
150 mg PO DAILY
ranitidine HCl [Zantac Maximum Strength] 150 MG tablet
150 mg PO DAILY Qty: 5 0RF
buprenorphine-naloxone 1 TAB tablet, sublingual
1 tab sublingual DAILY
ondansetron 4 mg tablet,disintegrating
4 mg PO Q6H PRN (Reason: nausea and vomiting) Qty: 20 0RF
chlordiazepoxide HCl 25 mg capsule
See Rx Instructions .ROUTE .COMPLEX Qty: 20 0RF
Rx Instructions:
Day 1: Take 50mg PO every 6 hours. Day 2: Take 50mg PO every 8 hours. Day 3: Take 50mg PO every 12 hours. Day 4: Take 50mg once at bedtime.
clonazepam [Klonopin] 1 mg tablet
1 mg PO BID Qty: 14 0RF
sertraline [Zoloft] 100 mg tablet
200 mg PO DAILY Qty: 14 0RF
mirtazapine [Remeron] 30 mg tablet
30 mg PO HS Qty: 14 0RF
clonazepam [Klonopin] 1 mg tablet
1 mg PO BID Qty: 14 0RF
sertraline [Zoloft] 100 mg tablet
200 mg PO DAILY Qty: 14 0RF
mirtazapine [Remeron] 30 mg tablet
30 mg PO HS 14 Days Qty: 14 0RF
clonazepam [Klonopin] 1 mg tablet
1 mg PO BID Qty: 14 0RF
mirtazapine [Remeron] 30 mg tablet
15 mg PO HS 7 Days Qty: 4 0RF
sertraline 200 mg capsule
200 mg PO DAILY Qty: 7 0RF
Referrals:
Fatoumata Mcdonnell MD [Non-Admitting Privileges, Psychiatry] - Call in 1-3 days for appt
UNKNOWN - PT DOES,NOT KNOW [Family Provider]
Interventions
Interventions:
*Risk Screen - Suicide Last Done: 11/04/24 19:48
*General Assessment Last Done: 11/04/24 19:48
*Neglect/Abuse Screening Last Done: 11/04/24 19:48
*ED- Fall Risk Assessment Last Done: 11/04/24 23:31
*ED COVID-19 Vaccine History Last Done: 11/04/24 23:31
*Nursing Disposition Last Done: 11/04/24 23:31
ED- Neurological Assessment Last Done: 11/04/24 22:07
Discharge Date and Time
Discharge Date/Time: 11/04/24 23:32
Print Language: BULGARIAN
[2024-11-04] MEDS: COMPAZINE 10 MG IV (23:00)
== END 2024-11-04 23:32 | disposition home or self-care (01) ==
LOC: EMR 19:47
PROVIDERS: EMERGENCY PHYSICIAN Emergency Medicine
DX: G43.909 Migraine, unspecified, not intractable, without status migrainosus (principal)
CPT/HCPCS: 96374; 96375; 99284; 70450

== ENCOUNTER 2024-11-08 18:29 | Emergency (ER) | payer SELFPAY ==
[2024-11-08 18:33] VITALS: BP 119/81
[2024-11-08 19:00] LABS: COVID-19 Antigen Negative (Negative)
--- NOTE | 2024-11-08 20:44 | ED.GENMED ---
History of Present Illness
General
Chief Complaint: Social Service Referral
Source: patient
Exam Limitations: none
Time Seen by Provider: 11/08/24 19:27
History of Present Illness
History of Present Illness:
34yoM here requesting a work note. Patient was seen in the ED 4 days ago for a migraine. He took a home COVID test when he got home which was positive. He has had several COVID infections in the past and states he does not feel like he has COVID.
He denies any fevers or chills. He has a chronic smoker's cough that is no worse than usual. He is here requesting a note to return to work.
Past History
Past History
ED Past Medical History: Other (Anxiety, binge drinker, migraine headaches, opiate addiction)
ED Past Surgical History: None
Social History
Tobacco: Smoker
Alcohol: Binge drinker
Drug: None
Personal: Single
Employment: Student
Family History
Family History: Other (Diabetes, pancreatic cancer)
Phy Exam
General Physical Exam
General Presentation: well appearing and no apparent distress
General Skin: warm and dry
General Habitus: normal
General Mental: alert
ENT Exam
ENT Exam: normocephalic
Pulmonary Exam
Pulmonary Exam: no respiratory distress
Neurological Exam
Neurological Exam: alert
Jody Coma Scale
Eye Opening: Spontaneous
Verbal Response: Oriented
Motor Response: Obeys Commands
GCS Total Score: 15
Skin Exam
Skin Exam: normal color and warm/dry
Psychiatric Exam
Psychiatric Exam: normal mood/affect
Course
Orders/Labs/Results
Orders:
Orders
11/08/24 18:40
COVID-19 Antigen Urgent
Source: Nasal Swab
Vital Signs
Initial and Last Documented VS:
Initial Vital Signs
Temp Pulse Resp BP Pulse Ox
98.1 F 107 16 119/81 96
11/08/24 18:33 11/08/24 18:33 11/08/24 18:33 11/08/24 18:33 11/08/24 18:33
Last Documented Vital Signs
Temp Pulse Resp BP Pulse Ox
98.1 F 107 16 119/81 96
11/08/24 18:33 11/08/24 18:33 11/08/24 18:33 11/08/24 18:33 11/08/24 20:47
MDM/Problems Addressed
Differential Diagnosis Includes:
34yoM here requesting a work note. Home COVID test was positive a few days ago but is he is asymptomatic. He denies URI symptoms, fevers, SOB. Oxygen saturation 96%. COVID test here is negative. Work note provided and patient discharged in stable
condition.
*Pulse Oximetry
SaO2: 96
Oxygen Mode of Delivery: Room air
*Critical Care Note
Total Time (30-74mins, 75-104mins- exclusive of procedures): Not Applicable
ED Attending Note
-
Portions of this chart may have been created with voice recognition software.� Occasional wrong word or��sound alike� substitutions may have occurred due to the inherent limitations of voice recognition software.
Discharge Plan
Departure
Patient Disposition: Home (Routine Discharge)
Date of Disposition: 11/08/24
Time of Disposition: 19:34
Patient with high blood pressure during this ER visit?: No
Discharge Problem:
Encounter for issue of other medical certificate
Prescriptions:
No Action
sertraline 100 MG tablet
150 mg PO DAILY
ranitidine HCl [Zantac Maximum Strength] 150 MG tablet
150 mg PO DAILY Qty: 5 0RF
buprenorphine-naloxone 1 TAB tablet, sublingual
1 tab sublingual DAILY
ondansetron 4 mg tablet,disintegrating
4 mg PO Q6H PRN (Reason: nausea and vomiting) Qty: 20 0RF
chlordiazepoxide HCl 25 mg capsule
See Rx Instructions .ROUTE .COMPLEX Qty: 20 0RF
Rx Instructions:
Day 1: Take 50mg PO every 6 hours. Day 2: Take 50mg PO every 8 hours. Day 3: Take 50mg PO every 12 hours. Day 4: Take 50mg once at bedtime.
clonazepam [Klonopin] 1 mg tablet
1 mg PO BID Qty: 14 0RF
sertraline [Zoloft] 100 mg tablet
200 mg PO DAILY Qty: 14 0RF
mirtazapine [Remeron] 30 mg tablet
30 mg PO HS Qty: 14 0RF
clonazepam [Klonopin] 1 mg tablet
1 mg PO BID Qty: 14 0RF
sertraline [Zoloft] 100 mg tablet
200 mg PO DAILY Qty: 14 0RF
mirtazapine [Remeron] 30 mg tablet
30 mg PO HS 14 Days Qty: 14 0RF
clonazepam [Klonopin] 1 mg tablet
1 mg PO BID Qty: 14 0RF
mirtazapine [Remeron] 30 mg tablet
15 mg PO HS 7 Days Qty: 4 0RF
sertraline 200 mg capsule
200 mg PO DAILY Qty: 7 0RF
Referrals:
[facility] [Outside]
Stand Alone Forms: Return to Work
Interventions
Interventions:
*Risk Screen - Suicide Last Done: 11/08/24 19:42
*General Assessment Last Done: 11/08/24 19:43
*Neglect/Abuse Screening Last Done: 11/08/24 19:42
*ED- Fall Risk Assessment Last Done: 11/08/24 19:43
*Nursing Disposition Last Done: 11/08/24 20:15
ED-Psychological Assessment Last Done: 11/08/24 19:42
Discharge Date and Time
Discharge Date/Time: 11/08/24 20:15
Print Language: [id number]
== END 2024-11-08 20:15 | disposition home or self-care (01) ==
LOC: EMR 18:29
PROVIDERS: EMERGENCY PHYSICIAN Emergency Medicine
DX: Z11.52 Encounter for screening for COVID-19 (principal); F41.9 Anxiety disorder, unspecified; F11.20 Opioid dependence, uncomplicated; F17.200 Nicotine dependence, unspecified, uncomplicated; Z83.3 Family history of diabetes mellitus
CPT/HCPCS: 99282; 87811

== ENCOUNTER 2024-12-19 19:28 | Emergency (ER) | payer SELFPAY ==
[2024-12-19 19:47] VITALS: BP 143/79
== END 2024-12-19 22:16 | disposition left against medical advice (07) ==
LOC: EMR 19:28
PROVIDERS: EMERGENCY PHYSICIAN Emergency Medicine
DX: M25.562 Pain in left knee (principal); Z53.21 Procedure and treatment not carried out due to patient leaving prior to being seen by health care provider
CPT/HCPCS: 73564; 73630